=== PATIENT | female | born 1975 | race Caucasian/White ===

== ENCOUNTER 2023-06-17 07:17 | Day surgery (SDC) | payer OTHER ==
[~2023-06-17] VITALS: Ht 165.1 cm; Wt 102.1 kg
[2023-06-17 09:01] VITALS: O2SAT 98
[2023-06-17] MEDS ORDERED: MIDAZOLAM HCL/PF 2 MG/2 ML SYRINGE ONE (10:02)
[2023-06-17] MEDS ORDERED: ONDANSETRON HCL 4 MG/2 ML VIAL ONE (10:02)
[2023-06-17] MEDS ORDERED: ROCURONIUM BROMIDE 10 MG/ML (ZEMURON) ONE (10:02)
[2023-06-17] MEDS ORDERED: SUCCINYLCHOLINE CHLORIDE 20 MG/ML(QUELICIN) ONE (10:02)
[2023-06-17] MEDS ORDERED: fentaNYL CITRATE/PF 100 MCG/2 ML AMP ONE (10:02)
[2023-06-17] MEDS ORDERED: GLYCOPYRROLATE 0.2 MG/ML VIAL ONE (10:02)
[2023-06-17] MEDS ORDERED: PROPOFOL 200MG/ 20ML VIAL (DIPRIVAN) IV ONE (10:02)
[2023-06-17] MEDS ORDERED: NS 1000 ML IV.SOLN IV ONE (10:02)
[2023-06-17] MEDS ORDERED: KETOROLAC TROMETHAMINE 30 MG VIAL ONE (10:02)
[2023-06-17] MEDS ORDERED: NS IRRIG SOLN 5000 ML IR ONE (10:02)
[2023-06-17] MEDS ORDERED: ACETAMINOPHEN I.V. 1000 MG 100 ML IV ONE (11:00)
[2023-06-17] MEDS ORDERED: IBUPROFEN 600 MG TABLET PO ONE (11:00)
[2023-06-17] MEDS ORDERED: HYDROmorphone 1 MG/ML INJ. CARTRIDGE IVP PRN (11:00)
[2023-06-17] MEDS ORDERED: ONDANSETRON HCL 4 MG/2 ML VIAL IVP PRN ×2 (11:00→12:00)
[2023-06-17] MEDS: METOCLOPRAMIDE HCL 10 MG/2 ML VIAL IVP PRN (11:48)
[2023-06-17] MEDS ORDERED: METOCLOPRAMIDE HCL 10 MG/2 ML VIAL ONE (11:48)
[2023-06-17] MEDS ORDERED: HYDROcodone/ACETAMIN 5-325 MG TAB (NORCO/ VICODIN) PO PRN ×2 (12:00)
[2023-06-17] MEDS ORDERED: ONDANSETRON 4 MG ODT TAB PO PRN (12:00)
[2023-06-17 13:45] VITALS: BP_SYST 107; PULSE 68; RESP 20
== END 2023-06-17 13:38 | disposition home or self-care (01) ==
LOC: SMU 07:17 → SDS 07:17
PROVIDERS: ATTEND Otolaryngology
DX: J03.90 Acute tonsillitis, unspecified (principal); J35.01 Chronic tonsillitis; K21.9 Gastro-esophageal reflux disease without esophagitis; E78.5 Hyperlipidemia, unspecified; E66.01 Morbid (severe) obesity due to excess calories; Z68.37 Body mass index [BMI] 37.0-37.9, adult; Z90.710 Acquired absence of both cervix and uterus; Z98.84 Bariatric surgery status; Z90.49 Acquired absence of other specified parts of digestive tract; Z79.899 Other long term (current) drug therapy
CPT/HCPCS: 87081; 42826; 88304; J3490; J1885; J2765; J3465; J2405; J2704; J0330; J3010; J7030